=== PATIENT | male | born 1955 | race Caucasian/White ===

== ENCOUNTER 2017-03-12 00:07 | Observation (INO) ==
[2017-03-12 00:43] LABS: Bilirubin,Urine Negative (Negative); Blood,Urine Negative (Negative); Clarity,Urine Cloudy (Clear); Color,Urine Dark Yellow (Yellow); Glucose,Urine (UA) Normal (Normal); Ketones,Urine Negative (Negative); Leukocyte Esterase,Urine Negative (Negative); Nitrite,Urine Negative (Negative); Protein,Urine Trace mg/dL (Neg-Trace); Specific Gravity,Urine 1.019 (1.010-1.025); Urobilinogen,Urine Normal (Normal)
[2017-03-12 00:45] LABS: Bacteria,Urine None Seen per hpf (None-Few); Hyaline Casts,Urine None Seen per lpf (None-Few); Squamous Epithelial Cell,Urine Many per lpf (None-Few)
[2017-03-12 01:15] LABS: Basophils % 0.3 %; Eosinophils # 0.1 K/mcL (0.0-0.6); Eosinophils % 0.9 %; Hematocrit 42.2 % (37.5-50.1); Hemoglobin 14.4 g/dL (12.9-16.9); Immature Granulocytes % 0.5 % (0-4); Immature Platelets 4.3 % (1.1-6.1); Lymphocytes # 1.4 K/mcL (0.6-4.6); Lymphocytes % 11.5 %; Mean Corpuscular HGB Conc 34.1 g/dL (31.6-35.5); Mean Corpuscular Hemoglobin 33.6 pg (28.0-33.3); Mean Corpuscular Volume 98.4 fL (83.0-100.0); Mean Platelet Volume 9.6 fL (9.4-12.4); Monocytes # 1.5 K/mcL (0.0-1.3); Monocytes % 11.8 %; Neutrophils # 9.4 K/mcL (1.6-8.9); Platelet Count 119 K/mcL (140-400); Red Blood Count 4.29 M/mcL (4.19-5.50); Red Cell Distribution Width 12.5 % (11.5-14.5)
[2017-03-12 01:30] LABS: Alanine Aminotransferase 20 Units/L (0-55); Albumin 3.7 g/dL (3.5-5.0); Albumin/Globulin Ratio 1.2 (1.1-2.2); Alkaline Phosphatase 76 Units/L (38-126); Amylase 53 Units/L (25-125); Aspartate Amino Transferase 17 Units/L (5-34); BUN/Creatinine Ratio 8 (6-26); Bilirubin,Direct 0.3 mg/dL (0.0-0.5); Bilirubin,Indirect 0.5 mg/dL (0.0-1.2); Bilirubin,Total 0.8 mg/dL (0.2-1.2); Blood Urea Nitrogen 11 mg/dL (8-26); Calcium 8.9 mg/dL (8.6-10.8); Carbon Dioxide 28 mEq/L (19-29); Chloride 96 mEq/L (98-109); Globulin 3.2 g/dL (2.4-3.5); Glucose 123 mg/dL (70-99); Lipase 26 Units/L (8-78); Osmolality,Calculated 275 (280-300); Potassium 4.4 mEq/L (3.5-4.5); Sodium 132 mEq/L (136-145); Total Protein 6.9 g/dL (6.0-8.3); eGFR For African Americans > 60 (> 60); eGFR For Non-African Americans 55 (> 60)
[2017-03-12] MEDS ORDERED: 0.9 % Sodium Chloride 1,000 ML IVC ONE (01:53)
--- NOTE | 2017-03-12 01:53 | Emergency Department Note ---
Disposition Clinical Impression: Acute appendicitis Qualifiers: Acute appendicitis type: with localized peritonitis Qualified Code(s): K35.3 - Acute appendicitis with localized peritonitis Disposition: Admitted As Inpatient Condition: Good Abdominal Pain HPI - General Chief Complaint: ED Abdominal Pain Stated Complaint: right flank pain, "fever 100.6" Time Seen by Provider: 03/12/17 01:41 Source: patient Mode of arrival: ambulatory Limitations: no limitations Nursing Notes Reviewed: Yes Vital Signs Reviewed: Yes - History of Present Illness HPI Narrative: Patient presents to the ED with the chief complaint of right lower quadrant abdominal pain. Onset was technically 2 days ago, but patient reports "yesterday" was present upon awakening. Located in his right lower quadrant, sharp, stabbing in nature , nonradiating, associated with decreased appetite, but no nausea, vomiting or diarrhea. Had a low-grade fever today of 100.6. States that the pain seems to be worse with movement. He was concerned over his appendix, so decided to come to the hospital when the pain has been consistent and slightly worse today. He does have a history of duodenal ulcers and states that he took some of his reflux medicine today in an attempt to help, but thinks that it made it worse. No chills, chest pain, shortness of breath, pain or swelling in his legs. No genitourinary complaints. Pain Scale: 8 - Related Data Home Medications Medication Instructions Recorded Confirmed Gabapentin [Neurontin] 800 mg PO TID 03/12/17 03/12/17 Lisinopril [Zestril] 5 mg PO DAILY 03/12/17 03/12/17 Metoprolol Succinate 50 mg PO DAILY 03/12/17 03/12/17 Multivit-Min/FA/Vit K/Lycopene [Hm 1 tab PO BID 03/12/17 03/12/17 Mens 50+ Advanced One Daily] Oxycodone HCl [Oxaydo] 5 mg PO PRN PRN 03/12/17 03/12/17 Allergies Allergy/AdvReac Type Severity Reaction Status Date / Time Amoxicillin Allergy Anaphylaxis Verified 03/12/17 03:45 All systems ED: reviewed and negative except as stated. Constitutional: Reports: fever, other (Decreased appetite) Gastrointestinal: Reports: abdominal pain Abdominal Pain PMH - Past Medical History Medical history: Reports: GERD, hypertension, TIA Male Surgical History: Reports: hip replacement, knee replacement Psychiatric history: Reports: no psych history - Social History Smoking status: Current every day smoker Alcohol use: Reports: heavy Drug use: Reports: none Physical Exam - General Limitations: no limitations General appearance: alert, in no apparent distress - Head Head exam: atraumatic, normocephalic, normal inspection - Eye Eye exam: Present: normal appearance, PERRL, EOMI - ENT ENT exam: mucous membranes moist - Chest Chest inspection: Present: normal inspection, symmetric chest wall rise - Respiratory Respiratory exam: Present: normal lung sounds bilaterally - Cardiovascular Cardiovascular exam: Present: regular rate, normal rhythm, normal heart sounds - Abdominal Exam Abdominal exam: Present: soft, tenderness, distention, guarding (voluntary, RLQ) , rebound, diminished bowel sounds, obturator sign, Rovsing's sign, tenderness at McBurney's Point. Absent: rigidity, normal bowel sounds, incision, Wilson's sign, mass, pulsatile mass Abdominal tenderness: Present: RLQ, moderate - Extremities Exam Extremities exam: Present: normal inspection, full ROM. Absent: tenderness, pedal edema - Neurological Exam Neurological exam: Present: alert, oriented X3 - Psychiatric Psychiatric exam: Present: normal affect, normal mood - Skin Skin exam: Present: warm, dry, intact, normal color Course Course Narrative: 62-year-old male presenting with right lower quadrant abdominal pain. Exam concerning for appendicitis. CT ordered. - Reevaluation(s) Reevaluation #1: CT confirmed non-perforated appendicitis 16 mm with a 9 mm appendicolith. Spoke with the on-call surgeon, Dr. Talbot, he will be in to evaluate the patient shortly. Vital Signs Temperature 98.4 F 03/12/17 00:09 Pulse Rate 98 03/12/17 00:09 Respiratory Rate 18 03/12/17 00:09 Blood Pressure 162/51 03/12/17 00:09 O2 Sat by Pulse Oximetry 95 03/12/17 00:09 Temperature 98.4 F 03/12/17 00:09 Pulse Rate 79 03/12/17 04:08 Respiratory Rate 20 03/12/17 04:28 Blood Pressure 119/60 03/12/17 04:28 O2 Sat by Pulse Oximetry 100 03/12/17 04:08 Oxygen Delivery Oxygen Delivery Room Air Abdominal Pain - Lab Data Result diagrams: 03/12/17 01:07 03/12/17 01:07 Lab Results 03/12/17 03/12/17 03/12/17 Range/Units 00:33 01:07 01:07 WBC 12.5 H (4.3-11.1) K/mcL RBC 4.29 (4.19-5.50) M/mcL Hgb 14.4 (12.9-16.9) g/dL Hct 42.2 (37.5-50.1) % MCV 98.4 (83.0-100.0) fL MCH 33.6 H (28.0-33.3) pg MCHC 34.1 (31.6-35.5) g/dL RDW 12.5 (11.5-14.5) % Plt Count 119 L (140-400) K/mcL MPV 9.6 (9.4-12.4) fL Immature Gran % 0.5 (0-4) % Seg Neutrophils % 75.0 % Lymphocytes % 11.5 % Monocytes % 11.8 % Eosinophils % 0.9 % Basophils % 0.3 % Neutrophils # 9.4 H (1.6-8.9) K/mcL Lymphocytes # 1.4 (0.6-4.6) K/mcL Monocytes # 1.5 H (0.0-1.3) K/mcL Eosinophils # 0.1 (0.0-0.6) K/mcL Basophils # 0.0 (0.0-0.2) K/mcL Immature Plt Fraction 4.3 (1.1-6.1) % PT (9.4-12.1) Seconds INR APTT (26.0-36.0) Seconds Sodium 132 L (136-145) mEq/L Potassium 4.4 (3.5-4.5) mEq/L Chloride 96 L (98-109) mEq/L Carbon Dioxide 28 (19-29) mEq/L BUN 11 (8-26) mg/dL Creatinine 1.33 H (0.72-1.25) mg/dL Est GFR ( Amer) > 60 (> 60) Est GFR (Non-Af Amer) 55 L (> 60) BUN/Creatinine Ratio 8 (6-26) Glucose 123 H (70-99) mg/dL Calculated Osmolality 275 L (280-300) Calcium 8.9 (8.6-10.8) mg/dL Total Bilirubin 0.8 (0.2-1.2) mg/dL Direct Bilirubin 0.3 (0.0-0.5) mg/dL Indirect Bilirubin 0.5 (0.0-1.2) mg/dL AST 17 (5-34) Units/L ALT 20 (0-55) Units/L Alkaline Phosphatase 76 (38-126) Units/L Serum Total Protein 6.9 (6.0-8.3) g/dL Albumin 3.7 (3.5-5.0) g/dL Globulin 3.2 (2.4-3.5) g/dL Albumin/Globulin Ratio 1.2 (1.1-2.2) Amylase 53 (25-125) Units/L Lipase 26 (8-78) Units/L Urine Color Dark Yellow (Yellow) Urine Clarity Cloudy A (Clear) Urine pH 6.0 (5.0-8.0) pH Units Ur Specific [place] 1.019 (1.010-1.025) Urine Protein Trace (Neg-Trace) mg/dL Urine Glucose (UA) Normal (Normal) mg/dL Urine Ketones Negative (Negative) mg/dL Urine Blood Negative (Negative) Urine Nitrite Negative (Negative) Urine Bilirubin Negative (Negative) Urine Urobilinogen Normal (Normal) mg/dL Ur Leukocyte Esterase Negative (Negative) Urine Microscopic RBC 3-5 H (0-3) per hpf Urine Microscopic WBC 5-15 H (0-3) per hpf Ur Squamous Epith Cells Many H (None-Few) per lpf Urine Bacteria None Seen (None-Few) per hpf Hyaline Casts None Seen (None-Few) per lpf Ur Culture Indicated? YES A (NO) 03/12/17 Range/Units 03:45 WBC (4.3-11.1) K/mcL RBC (4.19-5.50) M/mcL Hgb (12.9-16.9) g/dL Hct (37.5-50.1) % MCV (83.0-100.0) fL MCH (28.0-33.3) pg MCHC (31.6-35.5) g/dL RDW (11.5-14.5) % Plt Count (140-400) K/mcL MPV (9.4-12.4) fL Immature Gran % (0-4) % Seg Neutrophils % % Lymphocytes % % Monocytes % % Eosinophils % % Basophils % % Neutrophils # (1.6-8.9) K/mcL Lymphocytes # (0.6-4.6) K/mcL Monocytes # (0.0-1.3) K/mcL Eosinophils # (0.0-0.6) K/mcL Basophils # (0.0-0.2) K/mcL Immature Plt Fraction (1.1-6.1) % PT 13.6 H (9.4-12.1) Seconds INR 1.3 APTT 30.1 (26.0-36.0) Seconds Sodium (136-145) mEq/L Potassium (3.5-4.5) mEq/L Chloride (98-109) mEq/L Carbon Dioxide (19-29) mEq/L BUN (8-26) mg/dL Creatinine (0.72-1.25) mg/dL Est GFR ( Amer) (> 60) Est GFR (Non-Af Amer) (> 60) BUN/Creatinine Ratio (6-26) Glucose (70-99) mg/dL Calculated Osmolality (280-300) Calcium (8.6-10.8) mg/dL Total Bilirubin (0.2-1.2) mg/dL Direct Bilirubin (0.0-0.5) mg/dL Indirect Bilirubin (0.0-1.2) mg/dL AST (5-34) Units/L ALT (0-55) Units/L Alkaline Phosphatase (38-126) Units/L Serum Total Protein (6.0-8.3) g/dL Albumin (3.5-5.0) g/dL Globulin (2.4-3.5) g/dL Albumin/Globulin Ratio (1.1-2.2) Amylase (25-125) Units/L Lipase (8-78) Units/L Urine Color (Yellow) Urine Clarity (Clear) Urine pH (5.0-8.0) pH Units Ur Specific [place] (1.010-1.025) Urine Protein (Neg-Trace) mg/dL Urine Glucose (UA) (Normal) mg/dL Urine Ketones (Negative) mg/dL Urine Blood (Negative) Urine Nitrite (Negative) Urine Bilirubin (Negative) Urine Urobilinogen (Normal) mg/dL Ur Leukocyte Esterase (Negative) Urine Microscopic RBC (0-3) per hpf Urine Microscopic WBC (0-3) per hpf Ur Squamous Epith Cells (None-Few) per lpf Urine Bacteria (None-Few) per hpf Hyaline Casts (None-Few) per lpf Ur Culture Indicated? (NO) Attestation Statement - Attestation Attestation: I, Konstantin Mora MD, personally performed a history and physical exam of the patient and discussed their management with the resident. I reviewed the resident's note and agree with the documented findings, medical decision making , and plan of care. 62-year-old male presents to the emergency department with a complaint of right lower quadrant abdominal pain which started 2 days ago but became much worse over the last 12 hours. The pain is localized to the right lower quadrant and is worse with movement. There is been no nausea or vomiting. He has had a low- grade fever today. No dysuria or hematuria. No diarrhea. No GI bleed symptoms. No prior abdominal surgeries. On examination patient is a well-developed well-nourished male in no acute distress. He is alert and oriented 3. There is no cyanosis or diaphoresis. Breath sounds are clear and equal bilaterally. Heart regular rate and rhythm. Abdomen soft with normal bowel sounds. There is marked right lower quadrant tenderness on direct palpation with guarding. No rebound tenderness. No CVA tenderness. Labs reviewed. CT of the abdomen and pelvis shows acute appendicitis with an appendicolith and a dilated appendix to 16 mm with surrounding inflammatory changes. No evidence of abscess or perforation. The surgeon screen and cyclone repairer, Dr. Talbot, was consulted and will follow-up with the patient in the emergency department.
[2017-03-12] MEDS ORDERED: Albuterol 2.5 MG/3 ML NEBULIZER IH ONE (03:51)
[2017-03-12] MEDS ORDERED: Levofloxacin 750 MG/150 ML 750 MG/150 ML BAG IVPB ONE (03:52)
[2017-03-12] MEDS ORDERED: MetroNIDAZOLE 500 MG/100 ML 500 MG/100 ML BAG IVPB ONE (03:52)
--- NOTE | 2017-03-12 03:53 | General Surg History&Physical ---
Date of Encounter: 03/12/17 Time of Encounter: 03:51 Assessment and Plan (1) Acute appendicitis Current Visit: Yes Status: Acute The assessment and plan as outlined above was discussed with the patient and/or family members who expressed understanding and agreement. All questions were answered. I discussed with the patient that I personally reviewed the cT scan images and findings. He does have evidence of acute appendicitis and we will proceed with a laparoscopic appendectomy. Risks and benefits have been discussed with the patient and he agrees to the above plan. Qualifiers: Acute appendicitis type: with localized peritonitis Qualified Code(s): K35.3 - Acute appendicitis with localized peritonitis History of Present Illness Chief complaint: Right lower abdominal pain HPI: Mr. Mack is a 62 year old male with a past medical history of lower back pain and hypertension presents to the [facility] with a 24 hour history of right lower abdominal pain that is sharp in nature. He denies any nausea or vomiting and denies any diarrhea or constipation. Last BM was yesterday. Noted temp of 100.6. Due to the increasing abdominal pain he presents to the ER for further evaluation. Past Med Surg Social Fam HX - Past Medical History Medical history: GERD, hypertension, TIA Psychiatric history: no psych history - Past Surgical History Surgical History: hip replacement (Bilateral), knee replacement (Left), other ( Tens Unit) - Social History Smoking Status: Current every day smoker Alcohol use: heavy Drug use: none Medications and Allergies Allergies Amoxicillin Allergy (Verified 03/12/17 03:45) Anaphylaxis Review of Systems All systems PM: reviewed and no additional remarkable complaints except as stated All systems PM: A 10-system review of systems was performed and is negative for pertinent findings except as documented above in the HPI. General Surgery Exam Initial Vital Signs Temp Pulse Resp BP Pulse Ox 98.4 F 98 18 162/51 95 03/12/17 00:09 03/12/17 00:09 03/12/17 00:09 03/12/17 00:09 03/12/17 00:09 - Eyes PERRL, normal ocular movement - Respiratory normal expansion, normal respiratory effort, clear to auscultation - Cardiovascular Cardiovascular exam: Present: RRR, no murmurs/rubs/gallops - Abdomen Abdomen general surgery: Present: bowel sounds present, soft, tender (Noted pain to palpation in the RLQ) - Integumentary Integumentary general surgery: Present: warm and dry - Neurologic Present: CN 2-12 grossly intact - Musculoskeletal Present: other (No clubbing, cyanosis, or edema) - Psychiatric Psychiatric general surgery: Present: A&Ox3 Results - Labs 03/12/17 01:07 03/12/17 01:07 Abnormal lab results WBC 12.5 K/mcL (4.3-11.1) H 03/12/17 01:07 MCH 33.6 pg (28.0-33.3) H 03/12/17 01:07 Plt Count 119 K/mcL (140-400) L 03/12/17 01:07 Neutrophils # 9.4 K/mcL (1.6-8.9) H 03/12/17 01:07 Monocytes # 1.5 K/mcL (0.0-1.3) H 03/12/17 01:07 Sodium 132 mEq/L (136-145) L 03/12/17 01:07 Chloride 96 mEq/L (98-109) L 03/12/17 01:07 Creatinine 1.33 mg/dL (0.72-1.25) H 03/12/17 01:07 Est GFR (Non-Af Amer) 55 (> 60) L 03/12/17 01:07 Glucose 123 mg/dL (70-99) H 03/12/17 01:07 Calculated Osmolality 275 (280-300) L 03/12/17 01:07 Urine Clarity Cloudy (Clear) A 03/12/17 00:33 Urine Microscopic RBC 3-5 per hpf (0-3) H 03/12/17 00:33 Urine Microscopic WBC 5-15 per hpf (0-3) H 03/12/17 00:33 Ur Squamous Epith Cells Many per lpf (None-Few) H 03/12/17 00:33 Ur Culture Indicated? YES (NO) A 03/12/17 00:33 Diabetes panel 03/12/17 Range/Units 01:07 Sodium 132 L (136-145) mEq/L Potassium 4.4 (3.5-4.5) mEq/L Chloride 96 L (98-109) mEq/L Carbon Dioxide 28 (19-29) mEq/L BUN 11 (8-26) mg/dL Creatinine 1.33 H (0.72-1.25) mg/dL Glucose 123 H (70-99) mg/dL Calcium 8.9 (8.6-10.8) mg/dL AST 17 (5-34) Units/L ALT 20 (0-55) Units/L Alkaline Phosphatase 76 (38-126) Units/L Albumin 3.7 (3.5-5.0) g/dL Calcium panel 03/12/17 Range/Units 01:07 Calcium 8.9 (8.6-10.8) mg/dL Albumin 3.7 (3.5-5.0) g/dL Pituitary panel 03/12/17 Range/Units 01:07 Sodium 132 L (136-145) mEq/L Potassium 4.4 (3.5-4.5) mEq/L Chloride 96 L (98-109) mEq/L Carbon Dioxide 28 (19-29) mEq/L BUN 11 (8-26) mg/dL Creatinine 1.33 H (0.72-1.25) mg/dL Glucose 123 H (70-99) mg/dL Calcium 8.9 (8.6-10.8) mg/dL Adrenal panel 03/12/17 Range/Units 01:07 Sodium 132 L (136-145) mEq/L Potassium 4.4 (3.5-4.5) mEq/L Chloride 96 L (98-109) mEq/L Carbon Dioxide 28 (19-29) mEq/L BUN 11 (8-26) mg/dL Creatinine 1.33 H (0.72-1.25) mg/dL Glucose 123 H (70-99) mg/dL Calcium 8.9 (8.6-10.8) mg/dL Total Bilirubin 0.8 (0.2-1.2) mg/dL AST 17 (5-34) Units/L ALT 20 (0-55) Units/L Alkaline Phosphatase 76 (38-126) Units/L Albumin 3.7 (3.5-5.0) g/dL All other labs normal. - Imaging CT scan - abdomen: report reviewed, image reviewed (Noted stranding around the appendix with thickening consistent with acute appendicitis.)
[2017-03-12 04:05] LABS: INR 1.3; Prothrombin Time 13.6 Seconds (9.4-12.1)
[2017-03-12 04:07] LABS: Activated Partial Thrombo Time 30.1 Seconds (26.0-36.0)
--- NOTE | 2017-03-12 04:46 | Anesthesia Evaluation PreOp ---
Date of Encounter: 03/12/17 Time of Encounter: 04:45 - Past History Planned Operation: lap appy Cardiac History: HTN Pulmonary History: Smoker RATE SETTER History: TIA (denies) Other Medical History: Hepatic (states may have "slight" cirrhosis s/p years of heavy drinking...denies bruise/bleed easily), GERD Anesthesia History: No Prior Anesthetic Complications, Past Anesthesia (bilat benjamin, l tka) Alcohol Use: heavy (former) Drug use: none Medications and Allergies Gabapentin [Neurontin] 800 mg PO TID 03/12/17 [History] Lisinopril [Zestril] 5 mg PO DAILY 03/12/17 [History] Metoprolol Succinate 50 mg PO DAILY 03/12/17 [History] Multivit-Min/FA/Vit K/Lycopene [Hm Mens 50+ Advanced One Daily] 1 tab PO BID 11/16 [History] Oxycodone HCl [Oxaydo] 5 mg PO PRN PRN 03/12/17 [History] Allergies Amoxicillin Allergy (Verified 03/12/17 03:45) Anaphylaxis - Meds/Allergy Pre-op Review Medications Reviewed: Yes Allergies Reviewed: Yes Beta Blockers on Current Med List: Yes If Beta Blockers taken, Date/Time (Last Dose taken): metoprolol 03/11 at 0600 Anesthesia Results - Labs 03/12/17 01:07 03/12/17 01:07 Laboratory Tests 03/12/17 03:45 PT 13.6 H INR 1.3 APTT 30.1 Anesthesia Exam Vital Signs/O2 Sat/Glucose, Most Current Pulse Resp BP Pulse Ox 03/12/17 04:28 20 119/60 03/12/17 04:08 79 20 125/60 100 03/12/17 04:04 18 100 03/12/17 03:46 87 20 97 03/12/17 03:00 79 20 108/58 96 03/12/17 02:30 76 20 111/57 96 03/12/17 02:00 78 20 96/59 95 03/12/17 01:35 96 03/12/17 01:25 92 20 105/63 96 Height: 1.78 Weight: 86 NPO (# of Hours): >8 - HEENT Pupil (Motor): Pupils equal, EOMI Mallampati: II Teeth: Edentulous, Poor dentition Oral Opening: Greater than 3 - RATE SETTER LOC: Oriented RATE SETTER Motor: Normal RUE, Normal LUE, Normal RLE, Normal LLE, Normal Face RATE SETTER Sensory: Normal: RUE, LUE, RLE, LLE, Face - Cardiac Rhythm: Regular Murmur: None - Pulmonary Breath Sounds: bilateral Clear Respiratory Effort: Symmetrical Anesthesia Assess/Plan ASA Score: 2, E Modified [place] Scale for Level of Consciousness: Cooperative, oriented, and tranquil Anesthetic Plan: General Monitoring Plan: Standard Monitors Recovery Plan: PACU
[2017-03-12] MEDS ORDERED: *HR* Midazolam HCl 2 MG/2 ML VIAL ONE (04:52)
[2017-03-12] MEDS ORDERED: *HR* Succinylcholine 200 MG/10 ML VIAL IVP ONE (04:52)
[2017-03-12] MEDS ORDERED: *HR* FentaNYL (PF) 100 MCG/2 ML VIAL ONE (04:52)
[2017-03-12] MEDS ORDERED: *HR* Rocuronium Bromide 50 MG/5 ML VIAL ONE (04:52)
[2017-03-12] MEDS ORDERED: Dexamethasone 4 MG/ML VIAL ONE (04:52)
[2017-03-12] MEDS ORDERED: *HR* Propofol 200 MG/20 ML VIAL IVP ONE (04:52)
[2017-03-12] MEDS ORDERED: Lidocaine -MPF 2% 2 ML VIAL ONE (04:52)
[2017-03-12] MEDS ORDERED: Ondansetron 4 MG/2 ML VIAL ONE (04:52)
[2017-03-12] MEDS: Ringers Solution, Lactated 1,000 ML IVC SCH ×2 (05:00→06:30)
[2017-03-12] MEDS ORDERED: Water for inj. (sterile) 10 ML IV ONE (05:05)
[2017-03-12] MEDS ORDERED: Ketamine *HR* 500 MG/10 ML MDV ONE (05:05)
[2017-03-12] MEDS ORDERED: *HR* Phenylephrine 10 MG/ML VIAL ONE (05:16)
[2017-03-12] MEDS ORDERED: *HR* HYDROmorphone (PF) 1 MG/ML SYRINGE IVP PRN (05:43)
[2017-03-12] MEDS ORDERED: *HR* Promethazine 25 MG/ML VIAL IVP PRN (05:43)
[2017-03-12] MEDS ORDERED: *HR* Labetalol 100 MG/20 ML MDV IVP PRN (05:43)
[2017-03-12] MEDS ORDERED: Neostigmine Methylsulfate 3 MG/3 ML SYRINGE ONE (05:57)
--- NOTE | 2017-03-12 06:13 | Operative Note ---
Date of procedure: 03/12/17 Pre-op diagnosis: Acute appendicitis Post-op diagnosis: same Procedure: Laparoscopic appendectomy Anesthesia: GETA Surgeon: Anurag Talbot Specimen: appendix Condition: stable Disposition: PACU Procedure in Detail: Date of surgery: 03/12/17 After properly identifying the patient, the patient was brought to the operating room and placed in supine position. After proper IV sedation was achieved followed by general endotracheal intubation, the patient's abdomen was prepped and draped in a normal sterile fashion. A timeout was performed noting the patient's name and procedure to be performed. Subumbilical incision with an 11 blade scalpel was made down to the level of the rectus fascia. A small umbilical hernia defect was identified and the subcutaneous tissue was cleared away from the defect. A 12 mm port was placed with the defect in the abdomen was insufflated with carbon dioxide. Laparoscopic camera was placed to the port which showed no injury to the interabdominal organs upon entry. A suprapubic 5 mm port in the left lower quadrant 5 mm port was then placed under direct camera visualization. The right lower quadrant was examined and the appendix was noted to be distended and thickened consistent with acute appendicitis. Mild retraction of the appendix medially demonstrated signs of rupture with minimal spillage of liquefied stool which was immediately suctioned. There was also a large appendicolith at the level of the mid appendix could be seen at the level of the rupture. The base of the appendix was dissected away from the mesentary of the appendix with [place] dissector. The base of the appendix was then transected with a laparoscopic ANGELLA stapler. Bovie cauterization and further dissection with laparoscopic ANGELLA stapler was then used to transect the mesentery of the appendix away from the surrounding structures. The appendicolith and appendix were then removed from the abdomen via an Endobag. The right lower quadrant was copiously irrigated with normal saline solution. Visualization also demonstrated that the liver was grossly cirrhotic in appearance. The right lower quadrant and pelvis were copiously irrigated once again with normal saline solution and reinspection of the right lower quadrant showed maintenance of hemostasis. All ports were removed from the abdomen after the abdomen was desufflated. The rectus fascia and umbilical hernia defect was closed with a [id number] 0 Vicryl suture. Subcutaneous tissue was reapproximated with a 3-0 Vicryl suture. The epidermal and dermal layers for the remaining incisions were closed with 4-0 Monocryl sutures. Needle, sponge, and instrument counts were correct 2 and the incisions were covered with Steri-Strips and Band-Aids. The patient was aroused from IV sedation, extubated in the operating room without complication, and transported to the recovery room stable condition.
--- NOTE | 2017-03-12 06:56 | Anesthesia Evaluation Post Op ---
Date of Encounter: 03/12/17 Time of Encounter: 06:56 - Vital Signs Vital Signs: Vital Signs/O2 Sat/Glucose, Most Current Temp Pulse Resp BP Pulse Ox 03/12/17 06:34 84 12 124/71 96 03/12/17 06:24 99.6 F 93 12 139/96 91 03/12/17 04:28 20 119/60 03/12/17 04:08 79 20 125/60 100 03/12/17 04:04 18 100 03/12/17 03:46 87 20 97 03/12/17 03:00 79 20 108/58 96 - Lungs Lungs: Clear Ascult./Percussion - Airway Airway: Non-obstructed - Cardiovascular Regular Rate - Mental Status Mental Status: Alert & Oriented, Answers Appropriately - Pain Pain Scale: 0 - Nausea Vomiting Nausea Vomiting: Not Present - Hydration Hydration: Tolerates oral liquids - Discharge PostOp Status: Transfer Patient to floor
[2017-03-12] MEDS ORDERED: Ondansetron 4 MG/2 ML VIAL IVP PRN (08:02)
[2017-03-12] MEDS: *HR* HYDROmorphone (PF) 1 MG/ML SYRINGE IVP PRN (08:49)
[2017-03-12] MEDS: Multivit/Ca/Min/Fe/FA 1 TAB TABLET PO SCH (08:50)
[2017-03-12] MEDS: Gabapentin 400 MG CAPSULE PO SCH ×3 (08:50→21:08)
[2017-03-12] MEDS: Pantoprazole 40 MG VIAL IVP SCH (08:50)
[2017-03-12] MEDS: Metoprolol XL (24 HR) Succ 25 MG TAB.ER.24H PO SCH (08:58)
[2017-03-12] MEDS: OxyCODONE CONC 5 MG/0.25 ML ORAL.SYG PO PRN ×2 (11:00→17:20)
[2017-03-12] MEDS: MetroNIDAZOLE 500 MG/100 ML 500 MG/100 ML BAG IVPB SCH ×2 (12:51→19:42)
[2017-03-12] MEDS: 0.9 % Sodium Chloride 1,000 ML IVC SCH (12:52)
[2017-03-13] MEDS: MetroNIDAZOLE 500 MG/100 ML 500 MG/100 ML BAG IVPB SCH ×2 (03:25→12:04)
[2017-03-13] MEDS ORDERED: Levofloxacin 500 MG/100 ML 500 MG/100 ML BAG IVPB SCH (04:00)
[2017-03-13] MEDS: 0.9 % Sodium Chloride 1,000 ML IVC SCH (05:01)
[2017-03-13 06:23] LABS: Hematocrit 35.4 % (37.5-50.1); Hemoglobin 12.1 g/dL (12.9-16.9); Immature Platelets 5.4 % (1.1-6.1); Mean Corpuscular HGB Conc 34.2 g/dL (31.6-35.5); Mean Corpuscular Hemoglobin 33.9 pg (28.0-33.3); Mean Corpuscular Volume 99.2 fL (83.0-100.0); Mean Platelet Volume 10.2 fL (9.4-12.4); Red Blood Count 3.57 M/mcL (4.19-5.50); Red Cell Distribution Width 12.2 % (11.5-14.5)
[2017-03-13 06:27] LABS: BUN/Creatinine Ratio 11 (6-26); Blood Urea Nitrogen 8 mg/dL (8-26); Calcium 8.7 mg/dL (8.6-10.8); Carbon Dioxide 23 mEq/L (19-29); Chloride 102 mEq/L (98-109); Glucose 152 mg/dL (70-99); Osmolality,Calculated 279 (280-300); Potassium 4.3 mEq/L (3.5-4.5); Sodium 134 mEq/L (136-145); eGFR For African Americans > 60 (> 60); eGFR For Non-African Americans > 60 (> 60)
[2017-03-13 07:03] LABS: Platelet Count 84 K/mcL (140-400)
[2017-03-13 07:08] LABS: Lymphocytes # 1.5 K/mcL (0.6-4.6); Monocytes # 0.3 K/mcL (0.0-1.3); Neutrophils # 5.1 K/mcL (1.6-8.9); Platelet Estimate Decreased (Normal); Reactive Lymphocytes Present (Not Present)
[2017-03-13] MEDS: *HR* HYDROmorphone (PF) 1 MG/ML SYRINGE IVP PRN ×2 (09:54→11:59)
[2017-03-13] MEDS: Multivit/Ca/Min/Fe/FA 1 TAB TABLET PO SCH (09:55)
[2017-03-13] MEDS: Metoprolol XL (24 HR) Succ 25 MG TAB.ER.24H PO SCH (09:55)
[2017-03-13] MEDS: Pantoprazole 40 MG VIAL IVP SCH (09:55)
[2017-03-13] MEDS: Gabapentin 400 MG CAPSULE PO SCH (09:55)
[2017-03-13 10:49] VITALS: BP 113/59
--- NOTE | 2017-03-13 13:14 | Discharge Summary ---
Date of Encounter: 03/13/17 Time of Encounter: 13:00 - Discharge Diagnosis (1) Acute appendicitis Priority: Primary Status: Resolved Qualifiers: Acute appendicitis type: with localized peritonitis Qualified Code(s): K35.3 - Acute appendicitis with localized peritonitis - Discharge Medications Prescriptions: Ciprofloxacin HCl [Cipro] 500 mg PO BID #10 tablet MetroNIDAZOLE [Flagyl] 500 mg PO TID #15 tablet Home Medications: Gabapentin [Neurontin] 800 mg PO TID 03/12/17 [History] Lisinopril [Zestril] 5 mg PO DAILY 03/12/17 [History] Metoprolol XL (24 HR) Succ [Toprol Xl] 50 mg PO DAILY 03/12/17 [History] Morphine Sulfate SR (12 HR) [MS Contin] 30 mg PO Q12HR 03/12/17 [History] Multivit-Min/FA/Vit K/Lycopene [Hm Mens 50+ Advanced One Daily] 1 tab PO DAILY 03/12/17 [History] Oxycodone HCl [Oxaydo] 5 mg PO BID PRN 03/12/17 [History] Ciprofloxacin HCl [Cipro] 500 mg PO BID #10 tablet 03/13/17 [Rx] MetroNIDAZOLE [Flagyl] 500 mg PO TID #15 tablet 03/13/17 [Rx] Allergies/Adverse Reactions: Allergies Amoxicillin Allergy (Verified 03/12/17 03:45) Anaphylaxis celecoxib [From Celebrex] Allergy (Verified 03/12/17 07:45) See Comments Unknown reaction- Listed on Patient's ECW- meloxicam [From Mobic] Allergy (Verified 03/12/17 07:45) See Comments Unknown reaction- Listed on Patient's ECW- General Surgery Exam Initial Vital Signs Temp Pulse Resp BP Pulse Ox 98.4 F 98 18 162/51 95 03/12/17 00:09 03/12/17 00:09 03/12/17 00:09 03/12/17 00:09 03/12/17 00:09 - General physical appearance well developed, well nourished, no distress - Eyes PERRL, normal ocular movement - ENT normal mucosa, atraumatic, normocephalic - Neck trachea midline - Respiratory normal respiratory effort, clear to auscultation - Cardiovascular Cardiovascular exam: Present: RRR, 15, 16 - Abdomen Abdomen general surgery: Present: bowel sounds present, soft, tender (Expected postoperative tenderness) - Incision Incision: Present: clean and dry, intact - Integumentary Integumentary general surgery: Present: warm and dry - Neurologic Present: CN 2-12 grossly intact - Psychiatric Psychiatric general surgery: Present: appropriate, oriented to person, oriented to place, oriented to time, speech is normal, memory intact Date of admission: 03/12/17 04:02 Primary care physician: Keith Jean-Baptiste Discharging clinician: [facility] Anticipated date of discharge: 03/13/17 - Patient Status Disposition: Home, Self-Care Condition: Good Functional capacity at discharge: independent ambulation Overall status at discharge: patient is progressing back to baseline - Discharge Instructions Follow Up With: Keith Jean-Baptiste DO [Primary Care Provider] - Anurag Talbot MD [Partnered Physician] - 03/26/17 9:00 am (Surgery follow- up) Additional Instructions: #1 may shower, no tub bath for 2 weeks #2 wash incisions with soap and water and pat dry daily #3 no lifting, pushing, pulling more than 15 pounds for the next 2 weeks #4 no driving until off narcotics for 24 hours and able to safely react in the car #5 may climb stairs - Diet and Activity Activity: increase activity as tolerated Diet: advance to your usual diet - Hospital Course Hospital course: Mr. Mack is a 62 year old male who presented to the hospital with acute onset of abdominal discomfort. He was taken to the operating room for laparoscopic appendectomy with Dr. Talbot. He was maintained on IV antibiotics. On postoperative day #1, he is tolerating a regular diet without nausea or vomiting , his pain is well-controlled, vital signs are stable and afebrile, he is voiding and ambulating without difficulty, white blood cell count is normal. We will begin discharge planning and plan for outpatient follow-up in the next 10-14 days. - Time Spent with Patient Total time spent providing and/or coordinating discharge services: Less than 30 minutes Labs on day of discharge: Labs from last 24 hours 03/13/17 03/13/17 05:48 05:48 WBC 6.9 RBC 3.57 L Hgb 12.1 L D Hct 35.4 L MCV 99.2 MCH 33.9 H MCHC 34.2 RDW 12.2 Plt Count 84 L MPV 10.2 Seg Neutrophils % 72.0 Band Neutrophils % 2.0 Lymphocytes % 22.0 Monocytes % 4.0 Neutrophils # 5.1 Lymphocytes # 1.5 Monocytes # 0.3 Reactive Lymphocytes Present A Platelet Estimate Decreased L Immature Plt Fraction 5.4 Sodium 134 L Potassium 4.3 Chloride 102 Carbon Dioxide 23 BUN 8 Creatinine 0.75 Est GFR ( Amer) > 60 Est GFR (Non-Af Amer) > 60 BUN/Creatinine Ratio 11 Glucose 152 H Calculated Osmolality 279 L Calcium 8.7 - Attending Attestation I examined this patient and my medical decision-making was reviewed with the INSULATION EXTRUDER OPERATOR/PA/Advanced Practice Nurse/Resident Physician. I agree with the documented findings, disposition and treatment plan as described except to the extent set forth below.
== END 2017-03-13 14:28 | disposition home or self-care (01) ==
LOC: EMEROO 00:07 → 3ANU 00:07
PROVIDERS: ADMIT Surgery; ATTEND Surgery

== ENCOUNTER 2019-09-21 06:23 | Inpatient (IN) ==
[2019-09-21] MEDS ORDERED: Albuterol 2.5 MG/3 ML NEBULIZER IH PRN (06:44)
[2019-09-21] MEDS ORDERED: Ringers Solution, Lactated 1,000 ML IVC SCH (06:45)
[2019-09-21] MEDS ORDERED: Acetaminophen IV 1,000 MG/100 ML INFUS..BTL IVPB ONE (07:26)
[2019-09-21] MEDS ORDERED: Protamine Sulfate 50 MG/5 ML VIAL IVP ONE (07:38)
[2019-09-21] MEDS ORDERED: Heparin 1,000 UNITS/500 mL 1,000 ML ONE (07:38)
[2019-09-21] MEDS ORDERED: Lidocaine 1% 20 ML MDV ONE (07:38)
[2019-09-21] MEDS ORDERED: *HR* Meperidine 25 MG/ML SYRINGE IVP PRN (07:44)
[2019-09-21] MEDS ORDERED: *HR* Promethazine 25 MG/ML VIAL IVP PRN (07:44)
[2019-09-21] MEDS ORDERED: *HR* HYDROmorphone (PF) 1 MG/ML SYRINGE IVP PRN (07:44)
[2019-09-21] MEDS ORDERED: Ondansetron 4 MG/2 ML VIAL IVP ONE (07:44)
[2019-09-21] MEDS ORDERED: Vancomycin 1,000 MG VIAL ONE (07:45)
[2019-09-21] MEDS ORDERED: *HR* Midazolam HCl 2 MG/2 ML VIAL ONE (07:45)
[2019-09-21] MEDS ORDERED: *HR* FentaNYL (PF) 100 MCG/2 ML VIAL ONE (07:45)
[2019-09-21] MEDS ORDERED: *HR* Propofol 200 MG/20 ML VIAL IVP ONE (07:45)
[2019-09-21] MEDS ORDERED: Lidocaine -MPF 2% 2 ML VIAL ONE ×2 (07:46→07:47)
[2019-09-21] MEDS ORDERED: Heparin 1,000 UNITS/500 mL 500 ML ONE (07:46)
[2019-09-21] MEDS ORDERED: *HR* Succinylcholine 200 MG/10 ML VIAL IVP ONE (07:47)
[2019-09-21] MEDS ORDERED: Lidocaine HCL 4 ML Topical Solution (Laryng-O-Jet Kit Sterile Pak) TP ONE (07:51)
[2019-09-21] MEDS ORDERED: *HR* Remifentanil 2 MG VIAL IVP ONE (07:52)
[2019-09-21] MEDS ORDERED: Acetaminophen IV 1,000 MG/100 ML INFUS..BTL ONE (08:08)
[2019-09-21] MEDS ORDERED: *HR* PHENYLEPHRINE 1,000 MCG/10 ML SYRINGE IVP ONE (08:40)
[2019-09-21] MEDS ORDERED: Ondansetron 4 MG/2 ML VIAL ONE (08:44)
[2019-09-21] MEDS ORDERED: Dexamethasone 4 MG/ML VIAL ONE (08:44)
[2019-09-21] MEDS ORDERED: *HR* Phenylephrine 10 MG/ML VIAL ONE (08:50)
[2019-09-21] MEDS ORDERED: *HR* Heparin 5,000 UNIT/ML VIAL ONE ×2 (09:45→11:10)
[2019-09-21] MEDS ORDERED: Ketorolac 30 MG/ML VIAL ONE (11:10)
[2019-09-21] MEDS ORDERED: LEUPROLIDE ACETATE 30 MG IM SCH (13:24)
[2019-09-21] MEDS ORDERED: *HR* OxyCODONE Immed Rel 5 MG TABLET PO PRN (13:24)
[2019-09-21] MEDS ORDERED: *HR* Labetalol 20 MG/4 ML SYRINGE IVP PRN (13:24)
[2019-09-21] MEDS ORDERED: Naloxone 0.4 MG/ML INJ IVP PRN (13:24)
[2019-09-21] MEDS ORDERED: Ondansetron 4 MG/2 ML VIAL IVP PRN (13:24)
[2019-09-21] MEDS ORDERED: Acetaminophen 325 MG TABLET PO PRN (13:24)
[2019-09-21] MEDS ORDERED: Vancomycin 1,750 MG in 0.9 % Sodium Chloride 250 ML IVPB ONE (14:00)
[2019-09-21] MEDS: Gabapentin 400 MG CAPSULE PO SCH ×3 (14:13→21:55)
[2019-09-21] MEDS: *HR* HYDROcodone/Acet 5/325 mg TABLET PO PRN (18:27)
[2019-09-21] MEDS: Budesonide/Formoterol 160/4.5 1 PUFF INH IH SCH (21:43)
[2019-09-22 02:47] LABS: Basophils % 0.1 %; Hematocrit 33.5 % (37.5-50.1); Hemoglobin 11.3 g/dL (12.9-16.9); Immature Granulocytes % 0.4 % (0-4); Lymphocytes # 0.3 K/mcL (0.6-4.6); Lymphocytes % 4.6 %; Mean Corpuscular HGB Conc 33.7 g/dL (31.6-35.5); Mean Corpuscular Hemoglobin 33.2 pg (28.0-33.3); Mean Corpuscular Volume 98.5 fL (83.0-100.0); Mean Platelet Volume 9.3 fL (9.4-12.4); Monocytes # 0.5 K/mcL (0.0-1.3); Neutrophils # 6.1 K/mcL (1.6-8.9); Platelet Count 117 K/mcL (140-400); Red Cell Distribution Width 12.9 % (11.5-14.5); Segmented Neutrophils % 87.9 %; White Blood Count 6.9 K/mcL (4.3-11.1)
[2019-09-22 03:04] LABS: BUN/Creatinine Ratio 17 (6-26); Blood Urea Nitrogen 11 mg/dL (8-23); Calcium 8.8 mg/dL (8.6-10.3); Carbon Dioxide 28 mEq/L (23-29); Chloride 98 mEq/L (98-107); Glucose 144 mg/dL (70-105); Osmolality,Calculated 284 (280-300); Potassium 4.1 mEq/L (3.5-5.1); Sodium 136 mEq/L (136-145); eGFR For African Americans > 60 (> 60); eGFR For Non-African Americans > 60 (> 60)
[2019-09-22] MEDS: Budesonide/Formoterol 160/4.5 1 PUFF INH IH SCH (07:58)
[2019-09-22] MEDS: Gabapentin 400 MG CAPSULE PO SCH ×2 (08:54→12:49)
[2019-09-22] MEDS ORDERED: Metoprolol XL (24 HR) Succ 50 MG TAB.ER.24H PO SCH (09:00)
[2019-09-22] MEDS ORDERED: Multivit/Ca/Min/Fe/FA 1 TAB TABLET PO SCH (09:00)
[2019-09-22] MEDS ORDERED: Furosemide 40 MG TABLET PO SCH (09:00)
[2019-09-22] MEDS ORDERED: Aspirin Enteric Coated 81 MG Tablet PO SCH (09:00)
[2019-09-22 11:13] VITALS: BP 103/60
[2019-09-22] MEDS: *HR* HYDROcodone/Acet 5/325 mg TABLET PO PRN (12:49)
== END 2019-09-22 13:15 | disposition home or self-care (01) | DRG 39 ==
LOC: SAMDAY 06:23 → 2NNU 12:24
PROVIDERS: ADMIT Surgery Vascular Surgery; ATTEND Surgery Vascular Surgery